=== PATIENT | female | born 1990 | race Native Hawaiian/Other Pacific Islander ===

== ENCOUNTER 2021-04-02 11:09 | Emergency (ER) | payer SELFPAY ==
[2021-04-02 11:29] VITALS: BP 103/69
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
== END 2021-04-02 12:11 | disposition home or self-care (01) ==
LOC: ED 11:09
DX: S39.012A Strain of muscle, fascia and tendon of lower back, initial encounter (principal); V89.2XXA Person injured in unspecified motor-vehicle accident, traffic, initial encounter; Y93.89 Activity, other specified; Y92.89 Other specified places as the place of occurrence of the external cause; Y99.8 Other external cause status
CPT/HCPCS: 99282